=== PATIENT | female | born 1960 | race African-American/Black ===

== ENCOUNTER 2016-09-24 22:05 | Emergency (ER) | payer OTHER ==
[~2016-09-24] VITALS: Ht 170.2 cm; Wt 81.6 kg
[~2016-09-24 22:05] MED LIST: ALBUTEROL SULF8.5 GM INH; AMLODIPINE BESY10 MG; ASPIRIN81 M3; ATARAX25 MG ORAL; ATENOLOL50 MG; ATORVASTATIN CA20 MG; ATRIPLA TABLET1 EAC1; AZITHROMYCIN250 MG ORAL; BENADRYL ALLERG25 M1 PO; BISACODYL5 MG ORAL; COLACE100 MG ORAL; HYDROCHLOROTHIA25 MG; IBUPROFEN600 MG ORAL; IBUPROFEN800 MG ORAL; KENALOG 0.1% CR15 GM APPLIC; NAPROXEN375 MG; NORCO 5-325 TA1 EACH ORAL; PREDNISONE20 MG ORAL; PROAIR HFA8.5 GM; PROAIR HFA8.5 GM INH; QUETIAPINE FUM100 MG; RANITIDINE HCL150 M2; SPIRIVA18 MCG INH; VENLAFAXINE H37.5 M2; VICODIN 5-3001 EACH ORAL; ZITHROMAX250 MG ORAL; ZOLPIDEM TARTRA10 MG
[2016-09-24] MEDS ORDERED: VALACYCLOVIR500 MG ORAL (22:45)
[2016-09-24] MEDS ORDERED: BENADRYL25 MG ORAL (22:45)
--- NOTE | 2016-09-24 22:45 | Emergency Room Report ---
History of Present Illness General Chief Complaint: Skin Rash/Abscess Source: Patient Present Illness HPI Is a 55-year-old female with history of HIV. She presents with a rash to the right forehead. Onset for 3 days. Prior to that she felt burning and tingling sensation. Rash showed up the next day. Very itchy. No other injury. No blurry vision. Allergies: Coded Allergies: No Known Allergies (Unverified , 07/23/13) Patient History Past Medical History: see triage record, old chart reviewed, HIV Past Surgical History: other Pertinent Family History: none Social History: Denies: drug use Last Menstrual Period: 1995 Now: No Immunizations: other Reviewed Nursing Documentation: PMH: Agreed, PSxH: Agreed Nursing Documentation-PMH Past Medical History: No History, Except For Hx Hypertension: Yes Hx Pacemaker: No Hx Asthma: No Hx COPD: Yes Hx Diabetes: No Hx Cancer: No Hx Gastrointestinal Problems: No - Total hysterectomy in 1995 Hx Dialysis: No Hx Cerebrovascular Accident: No Hx Seizures: No Review of Systems Eye: Denies: blurred vision, eye pain ENT: Denies: ear pain, nose congestion, throat swelling Respiratory: Denies: cough, shortness of breath Cardiovascular: Denies: chest pain, palpitations Gastrointestinal: Denies: abdominal pain, diarrhea, nausea, vomiting Musculoskeletal: Denies: back pain, joint pain Skin: Reports: rash Neurological: Denies: headache, numbness Endocrine: Denies: increased thirst, increased urine Hematologic/Lymphatic: Denies: easy bruising All Other Systems: negative except mentioned in HPI Physical Exam Vital Signs Date Time Temp Pulse Resp B/P Pulse Ox O2 Delivery O2 Flow Rate FiO2 09/24/16 22:19 97.5 100 16 134/86 100 Room Air vitals normal. Sp02 EP Interpretation: reviewed, normal General Appearance: well appearing, no apparent distress, alert Head: normocephalic, atraumatic Eyes: bilateral eye EOMI, bilateral eye PERRL ENT: hearing grossly normal, normal pharynx Neck: full range of motion, supple, no meningismus Respiratory: chest non-tender, lungs clear, normal breath sounds Cardiovascular #1: regular rate, rhythm, no murmur Gastrointestinal: normal bowel sounds, non tender, no mass, no organomegaly, no bruit, non-distended Musculoskeletal: back normal, gait/station normal, normal range of motion Psychiatric: mood/affect normal Skin: warm/dry, rash - vesicular rash over right forehead. Medical Decision Making Diagnostic Impression: Primary Impression: Shingles Qualified Codes: B02.8 - Zoster with other complications ER Course Patient presents with a shingle outbreak to the right forehead. No rash to the tip of the nose or visual complaints. Funduscopic exam unremarkable. We'll discharge home with reassurance. Last Vital Signs Date Time Temp Pulse Resp B/P Pulse Ox O2 Delivery O2 Flow Rate FiO2 09/24/16 22:19 97.5 100 16 134/86 100 Room Air Status: unchanged Disposition: HOME, SELF-CARE Condition: Stable Scripts Valacyclovir Hcl* (VALTREX*) 500 Mg Tablet 500 MG ORAL TWICE A DAY, #14 TAB Prov: SHANIQUE DEVLIN M.D. 09/24/16 Diphenhydramine Hcl* (BENADRYL*) 25 Mg Capsule 50 MG ORAL Q6H Y for Itching, #30 CAP Prov: SHANIQUE DEVLIN M.D. 09/24/16 Additional Instructions: Follow up with your doctor in 7 days. Return if worse. SHANIQUE DEVLIN M.D. Sep 24, 2016 22:45
[2016-09-24 22:58] VITALS: BP 138/89
[2016-09-24 22:59] VITALS: BP 138/89
== END 2016-09-24 23:10 | disposition home or self-care (01) ==
LOC: EMR 23:06
DX: B02.9 Zoster without complications (principal); I10 Essential (primary) hypertension; J44.9 Chronic obstructive pulmonary disease, unspecified; Z90.710 Acquired absence of both cervix and uterus
CPT/HCPCS: 99284

== ENCOUNTER 2016-09-28 09:05 | Emergency (ER) | payer OTHER ==
[~2016-09-28] VITALS: Ht 170.2 cm; Wt 81.6 kg
[~2016-09-28 09:05] MED LIST changes: +BENADRYL25 MG ORAL; +VALACYCLOVIR500 MG ORAL
[2016-09-28] MEDS ORDERED: LORATADINE10 M1 PO (09:15)
[2016-09-28 09:35] VITALS: BP 120/75
--- NOTE | 2016-09-28 09:39 | Emergency Room Report ---
History of Present Illness General Chief Complaint: Vaginal Source: Patient Present Illness HPI Patient present with complaints of vaginal irritation She feels that over the past 6 days and she's had increased itching sensation Denies any discharge denies any pain Denies any vomiting or diarrhea Denies any vaginal bleeding or spotting she has also noticed some white flakes on her underwear Denies any other rash denies any dysuria frequency Allergies: Coded Allergies: No Known Allergies (Unverified , 07/23/13) Patient History Past Medical History: see triage record Pertinent Family History: none Reviewed Nursing Documentation: PMH: Agreed, PSxH: Agreed Nursing Documentation-PMH Past Medical History: No History, Except For Hx Hypertension: Yes Hx Pacemaker: No Hx Asthma: No Hx COPD: Yes Hx Diabetes: No Hx Cancer: No Hx Gastrointestinal Problems: No - Total hysterectomy in 1995 Hx Dialysis: No History Of Psychiatric Problem: Yes - Anxiety, depression Hx Neurological Problems: No Hx Cerebrovascular Accident: No Hx Seizures: No Review of Systems All Other Systems: negative except mentioned in HPI Physical Exam Vital Signs Date Time Temp Pulse Resp B/P Pulse Ox O2 Delivery O2 Flow Rate FiO2 09/28/16 09:08 98.2 84 16 120/75 98 Room Air Sp02 EP Interpretation: reviewed, normal General Appearance: well appearing, no apparent distress Head: normocephalic, atraumatic Eyes: bilateral eye EOMI, bilateral eye PERRL ENT: normal pharynx Neck: supple Respiratory: lungs clear Genitourinary: other - External pelvic exam was performed, no obvious erythema no fluctuance, no obvious discharge Musculoskeletal: normal inspection Neurologic: alert, oriented x3, responsive Skin: other - As above, patient has forehead covered, reports shingles Medical Decision Making Diagnostic Impression: Primary Impression: Vaginosis ER Course Given the clinical complaints patient is provided with ointment Requires close outpatient INSULATION MANAGER followup And return with any worsening symptoms Last Vital Signs Date Time Temp Pulse Resp B/P Pulse Ox O2 Delivery O2 Flow Rate FiO2 09/28/16 09:08 98.2 84 16 120/75 98 Room Air Status: unchanged Disposition: HOME, SELF-CARE Condition: Stable Additional Instructions: Patient is provided with the discharge instructions notified to follow up with primary doctor in the next 2-3 days otherwise return to the er with any worsening symptoms. Please note that this report is being documented using [employer] technology. This can lead to erroneous entry secondary to incorrect interpretation by the dictating instrument. JORJE EDMONDSON D.O. Sep 28, 2016 09:38
[2016-09-28] MEDS ORDERED: METROGEL-VAGINA70 G1 VAGIN (09:40)
[2016-09-28 09:52] VITALS: BP 120/75
== END 2016-09-28 09:55 | disposition home or self-care (01) ==
LOC: EMR 09:48
DX: N76.0 Acute vaginitis (principal); I10 Essential (primary) hypertension; J44.9 Chronic obstructive pulmonary disease, unspecified
CPT/HCPCS: 99282

== ENCOUNTER 2016-10-25 14:26 | Emergency (ER) | payer OTHER ==
[~2016-10-25] VITALS: Ht 170.2 cm; Wt 81.6 kg
[~2016-10-25 14:26] MED LIST changes: +LORATADINE10 M1 PO; +METROGEL-VAGINA70 G1 VAGIN
[2016-10-25 15:15] VITALS: BP 148/106
[2016-10-25 15:30] VITALS: BP 148/106
[2016-10-25] MEDS ORDERED: Morphine Sulfate 4mg/ml Inj IM ONE (15:30)
--- NOTE | 2016-10-25 20:57 | Emergency Room Report ---
History of Present Illness General Chief Complaint: General Complaint Present Illness HPI The patient is a 55-year-old female presenting for neck pain, shortness of breath, lower abdominal pain which all began this morning. The patient is described as a 10 out of 10 dull ache with unknown provoking relieving factors. The patient denies any other symptoms including nausea, vomiting, fever, chills, chest, shortness of breath. Allergies: Coded Allergies: No Known Allergies (Unverified , 07/23/13) Patient History Past Medical History: see triage record Pertinent Family History: none Reviewed Nursing Documentation: PMH: Agreed, PSxH: Agreed Nursing Documentation-PMH Hx Hypertension: Yes Hx Pacemaker: No Hx Asthma: No Hx COPD: Yes Hx Diabetes: No Hx Cancer: No Hx Gastrointestinal Problems: No - Total hysterectomy in 1995 Hx Dialysis: No Hx Neurological Problems: No Hx Cerebrovascular Accident: No Hx Seizures: No Review of Systems All Other Systems: negative except mentioned in HPI Physical Exam Vital Signs Date Time Temp Pulse Resp B/P Pulse Ox O2 Delivery O2 Flow Rate FiO2 10/25/16 14:54 98.1 50 16 148/106 100 Room Air Sp02 EP Interpretation: reviewed, normal General Appearance: no apparent distress, alert, GCS 15, non-toxic Head: normocephalic, atraumatic Eyes: bilateral eye PERRL, bilateral eye normal inspection Musculoskeletal: gait/station normal, normal range of motion Neurologic: alert, oriented x3, responsive, motor strength/tone normal, sensory intact, normal gait, speech normal Psychiatric: judgement/insight normal, memory normal, mood/affect normal, no suicidal/homicidal ideation Skin: normal color, no rash, warm/dry, well hydrated Lymphatic: no adenopathy Medical Decision Making PA Attestation Dr. Gutierrez is my supervising physician. Patient management was discussed with my supervising physician ER Course The patient is a 55-year-old female presenting for neck pain, shortness of breath, lower abdominal pain The patient has eloped shortly after being placed in a chair. The patient states that "I don't have time for this". Last Vital Signs Date Time Temp Pulse Resp B/P Pulse Ox O2 Delivery O2 Flow Rate FiO2 10/25/16 15:30 98.1 50 16 148/106 100 Room Air Status: improved Disposition: ELOPED Condition: Unknown Referrals: [facility] (PCP) EVELINA ESTEVES Oct 25, 2016 20:57
[2016-10-26] MEDS ORDERED: VIBRAMYCIN100 MG ORAL (10:07)
[2016-10-26] MEDS ORDERED: TRAMADOL HCL50 MG ORAL (10:07)
== END 2016-10-25 15:30 | disposition left against medical advice (07) ==
LOC: EMR 15:30
DX: M54.2 Cervicalgia (principal); R06.02 Shortness of breath; R10.30 Lower abdominal pain, unspecified; I10 Essential (primary) hypertension; J44.9 Chronic obstructive pulmonary disease, unspecified; Z90.710 Acquired absence of both cervix and uterus
CPT/HCPCS: 99281

== ENCOUNTER 2016-10-26 09:26 | Emergency (ER) | payer OTHER ==
[~2016-10-26] VITALS: Ht 170.2 cm; Wt 81.6 kg
[2016-10-26 10:00] VITALS: BP 116/76
[2016-10-26] MEDS ORDERED: TRAMADOL HCL50 MG ORAL (10:07)
[2016-10-26] MEDS ORDERED: VIBRAMYCIN100 MG ORAL (10:07)
--- NOTE | 2016-10-26 10:18 | Emergency Room Report ---
History of Present Illness General Chief Complaint: General Complaint Source: Patient Present Illness HPI Patient presents with sore throat and lymph node swelling both in her neck and also in her groin area. She also has edema in both of her ankles. This been on for several months but worse for 2-3 days. She states she's had fevers. She denies any trouble swallowing from discomfort. She has no shortness of breath. No cough, chest pain, abdominal pain, dysuria. She denies vaginal d/c. No NVD. She states her doctors believe the edema is related to HIV meds. The patient is HIV for some years and is being followed. She states her viral load and C4 counts are good. Allergies: Coded Allergies: No Known Allergies (Unverified , 07/23/13) Patient History Past Medical History: see triage record Social History: Reports: smoking Social History Narrative disabled Last Menstrual Period: na Now: No Reviewed Nursing Documentation: PMH: Agreed, PSxH: Agreed Nursing Documentation-PMH Past Medical History: No History, Except For Hx Hypertension: Yes Hx Pacemaker: No Hx Asthma: No Hx COPD: Yes Hx Diabetes: No Hx Cancer: No Hx Gastrointestinal Problems: No - Total hysterectomy in 1995 Hx Dialysis: No Hx Neurological Problems: No Hx Cerebrovascular Accident: No Hx Seizures: No Review of Systems All Other Systems: negative except mentioned in HPI Physical Exam Vital Signs Date Time Temp Pulse Resp B/P Pulse Ox O2 Delivery O2 Flow Rate FiO2 10/26/16 09:40 98.1 78 18 116/76 96 Room Air Sp02 EP Interpretation: reviewed, normal General Appearance: well appearing, no apparent distress, GCS 15 Head: normocephalic Eyes: bilateral eye normal inspection ENT: moist mucus membranes, pharyngeal erythema Neck: supple, no meningismus Respiratory: chest non-tender, lungs clear, normal breath sounds Cardiovascular #1: regular rate, rhythm, edema - + bilaterally Cardiovascular #2: 2+ radial (R) Gastrointestinal: normal inspection, normal bowel sounds, non tender, no mass, non-distended Musculoskeletal: back normal, gait/station normal, normal range of motion Neurologic: alert, oriented x3, grossly normal Psychiatric: mood/affect normal Skin: normal inspection, warm/dry Lymphatic: adenopathy - minimal groin nodes Medical Decision Making Diagnostic Impression: Primary Impression: Pharyngitis Qualified Codes: J02.9 - Acute pharyngitis, unspecified Additional Impressions: Lymphadenitis Edema ER Course Patient with HIV and sore throat, lymphadenopathy and edema. DDx: viral, strep , candidal. Edema seems long standing. She alleges taking her HIV meds and having close follow up. Etiologies of edema and lymph node enlargement probably not related to the chief complaint. Diagnosis is clinical for pharyngitis. Doxy chosen to cover possible lymph node infection. Suggested to patient to follow up with her PMD for other problems and also for repeat evaluation of sore throat treatment. Patient stable for outpatient observation and treatment. Last Vital Signs Date Time Temp Pulse Resp B/P Pulse Ox O2 Delivery O2 Flow Rate FiO2 10/26/16 10:35 98.1 78 18 116/76 96 Room Air Status: improved Disposition: HOME, SELF-CARE Condition: Stable Scripts Tramadol Hcl* (ULTRAM*) 50 Mg Tablet 50 MG ORAL Q6H Y for For Pain, #10 TAB 0 Refills Prov: Collin Perkins M.D. 10/26/16 Doxycycline Hyclate* (VIBRAMYCIN*) 100 Mg Capsule 100 MG ORAL EVERY 12 HOURS, #14 CAP 0 Refills Prov: Collin Perkins M.D. 10/26/16 Referrals: [facility] (PCP) Patient Instructions: Edema, Pharyngitis, Lymphadenopathy Additional Instructions: Follow up with your MD. Continue your medicines. Decrease the salt in your diet. Return if you are not doing well. Collin Perkins M.D. Oct 26, 2016 10:18
[2016-10-26 10:35] VITALS: BP 116/76
== END 2016-10-26 10:35 | disposition home or self-care (01) ==
LOC: EMR 10:06
DX: J02.9 Acute pharyngitis, unspecified (principal); I88.9 Nonspecific lymphadenitis, unspecified; R60.0 Localized edema; I10 Essential (primary) hypertension; J44.9 Chronic obstructive pulmonary disease, unspecified; Z90.710 Acquired absence of both cervix and uterus; F17.200 Nicotine dependence, unspecified, uncomplicated
CPT/HCPCS: 99284

== ENCOUNTER 2016-11-17 09:39 | Emergency (ER) | payer OTHER ==
[~2016-11-17] VITALS: Ht 170.2 cm; Wt 81.6 kg
[~2016-11-17 09:39] MED LIST changes: +TRAMADOL HCL50 MG ORAL; +VIBRAMYCIN100 MG ORAL
[2016-11-17] MEDS ORDERED: Lidocaine 2% Visc 15ml soln ORAL ONE (11:30)
[2016-11-17 11:39] VITALS: BP 127/76
[2016-11-17 11:40] VITALS: BP 127/76
--- NOTE | 2016-11-19 14:48 | Emergency Room Report ---
History of Present Illness General Chief Complaint: Flu Like Symptoms Source: Patient Present Illness HPI 55YOF with "sore" to right back of tongue for 2 days. Denies fever/chills, difficulty/painful swallowing, SOB, chest pain, headache, neck pain. Feels well otherwise. Allergies: Coded Allergies: No Known Allergies (Unverified , 07/23/13) Patient History Past Medical History: HIV Past Surgical History: none Pertinent Family History: none Social History: Denies: alcohol use, drug use, smoking Now: No Immunizations: UTD Reviewed Nursing Documentation: PMH: Agreed, PSxH: Agreed Nursing Documentation-PMH Hx Cardiac Problems: No Hx Hypertension: Yes Hx Pacemaker: No Hx Asthma: No Hx COPD: No Hx Diabetes: No Hx Cancer: No Hx Dialysis: No Hx Neurological Problems: No Hx Cerebrovascular Accident: No Hx Seizures: No Review of Systems All Other Systems: negative except mentioned in HPI Physical Exam Vital Signs Date Time Temp Pulse Resp B/P Pulse Ox O2 Delivery O2 Flow Rate FiO2 11/17/16 10:17 98.1 78 18 120/80 98 Room Air Sp02 EP Interpretation: reviewed, normal General Appearance: normal inspection, well appearing, no apparent distress, alert, GCS 15, non-toxic Head: normocephalic, atraumatic Eyes: bilateral eye EOMI, bilateral eye PERRL ENT: normal ENT inspection, hearing grossly normal, normal voice, moist mucus membranes, other - Small cold/canker sore to posterior aspect of right tongue Neck: normal inspection, full range of motion, supple, no bony tend Respiratory: normal inspection, lungs clear, normal breath sounds, no respiratory distress, no retraction, no wheezing Cardiovascular #1: regular rate, rhythm, no edema Gastrointestinal: normal inspection, normal bowel sounds, non tender, soft, no guarding, no hernia Genitourinary: no CVA tenderness Musculoskeletal: normal inspection, back normal, normal range of motion, Herminio' s Sign negative Neurologic: normal inspection, alert, oriented x3, responsive, steel wheel engraver III-XII nml as tested, motor strength/tone normal, speech normal Psychiatric: normal inspection, judgement/insight normal, mood/affect normal Skin: normal inspection, normal color, no rash Lymphatic: normal inspection Medical Decision Making Diagnostic Impression: Primary Impression: Canker sore ER Course Gave viscous lidocaine in ED with improvement Has dentist appointment in the next week Advised OTC listerine rinse as needed Advised supportive treatment Reassured patient will self-resolve Last Vital Signs Date Time Temp Pulse Resp B/P Pulse Ox O2 Delivery O2 Flow Rate FiO2 11/17/16 11:40 98.1 71 18 127/76 98 Room Air Status: improved Disposition: HOME, SELF-CARE Condition: Improved Patient Instructions: Oral Ulcers Additional Instructions: - Rinse with listerine 2-3x a day as needed - Follow up with dentist at next appointment RACHNA RAPHAEL M.D. Nov 19, 2016 14:48
== END 2016-11-17 11:46 | disposition home or self-care (01) ==
LOC: EMR 10:55
DX: K12.0 Recurrent oral aphthae (principal); I10 Essential (primary) hypertension
CPT/HCPCS: 99282

== ENCOUNTER 2017-04-05 08:26 | Emergency (ER) | payer OTHER ==
[~2017-04-05] VITALS: Ht 170.2 cm; Wt 81.6 kg
[2017-04-05 08:52] VITALS: BP 149/87
[2017-04-05] MEDS ORDERED: PredniSONE 20mg tab ORAL ONE (09:00)
[2017-04-05] MEDS: DuoNeb 0.5-3(2.5)mg/3ml neb HHN SCH ×3 (09:22→10:47)
--- NOTE | 2017-04-05 09:56 | Emergency Room Report ---
History of Present Illness General Chief Complaint: Dyspnea/Respdistress Source: Patient Present Illness HPI 56 yo F w copd p/w sob/wheezing x 2 days. states she has been using inhaler x 4 hours with miniml relief. +slight cough nonproductive. denies fever chills chest pain nv. denies hx of hospitalizations for copd in the past. no use of bipap. no recent steroid use. . Allergies: Coded Allergies: No Known Allergies (Unverified , 07/23/13) Patient History Past Medical History: COPD Past Surgical History: none Pertinent Family History: none Now: No Nursing Documentation-PMH Hx Cardiac Problems: No Hx Hypertension: Yes Hx Pacemaker: No Hx Asthma: No Hx COPD: Yes Hx Diabetes: No Hx Cancer: No Hx Gastrointestinal Problems: Yes - hiv, hx ulcer Hx Dialysis: No Hx Neurological Problems: No Hx Cerebrovascular Accident: No Hx Seizures: No Review of Systems Respiratory: Reports: cough, shortness of breath, wheezing All Other Systems: negative except mentioned in HPI Physical Exam Vital Signs Date Time Temp Pulse Resp B/P Pulse Ox O2 Delivery O2 Flow Rate FiO2 04/05/17 08:31 98.1 83 15 149/87 100 Room Air Sp02 EP Interpretation: reviewed, normal General Appearance: normal inspection, well appearing, no apparent distress, alert, GCS 15, non-toxic, other - well appearing female speaking in complete sentences without difficulty Head: normocephalic, atraumatic Eyes: bilateral eye EOMI, bilateral eye PERRL, bilateral eye normal inspection ENT: normal ENT inspection, normal pharynx, normal voice, moist mucus membranes Neck: normal inspection, full range of motion, supple, no bony tend Respiratory: normal inspection, lungs clear, normal breath sounds, no respiratory distress, no retraction, no wheezing, speaking full sentences, chest symmetrical Cardiovascular #1: normal inspection, regular rate, rhythm, no edema, normal capillary refill Gastrointestinal: normal inspection, non tender, soft, non-distended, no guarding Musculoskeletal: normal inspection, back normal, normal range of motion, non- tender Neurologic: normal inspection, alert, oriented x3, responsive, benefits processor III-XII nml as tested, motor strength/tone normal, sensory intact, normal gait, speech normal Psychiatric: normal inspection, judgement/insight normal, memory normal Skin: normal inspection, normal color, no rash, warm/dry, well hydrated, normal turgor Medical Decision Making Diagnostic Impression: Primary Impression: COPD exacerbation Additional Impression: Pneumonia ER Course 56 yo F with pmhx of COPD p/w SOB for 2-3 days. DDX: COPD exacerbation, pneumonia, viral syndrome patient only in mild resp distress Plan: Duonebs, steroids, cxr Will consider BIPAP for persistent or worsening respiratory status ER Course: Patient has been treated with combivent x 3, steroids CXR- possible R sided infiltrate Patients overall respiratory status has improved in ED. Patient states improvement of symptoms. Patient continues to speak in complete sentences and is not in respiratory distress. Repeat lung auscultation: good air entry with minimal/no wheezing. Repeat VS reveals normal RR and SpO2. Disposition: Patient will be discharged to home with course of steroids and antibiotics. Patient is instructed to use albuterol inhaler as needed. Strict precautions are discussed with patient on when to emergently return to the ED including: persistent or worsening SOB, chest pain, fever, chills, which could indicate severe illness. Patient verbalized understanding. Patient is to follow up with her/his PMD within 5 days. Patient agrees with plan. EKG Diagnostic Results Rate: normal Rhythm: NSR ST Segments: other - t wave inversion V2V3 aVL, t wave flattening V4-V6 Rhythm Strip Diag. Results EP Interpretation: yes Rhythm: NSR, no PVC's Chest X-Ray Diagnostic Results Chest X-Ray Diagnostic Results : # of Views/Limited/Complete: 1 View Indication: Shortness of Breath EP Interpretation: Yes Interpretation: no effusion, other - possible R sided infiltrate Impression: Other - possible R sided infiltrate suspicion for pneumonia Interpreting ER Provider: Electronically signed by Sylvester Coughlin M.D. Last Vital Signs Date Time Temp Pulse Resp B/P Pulse Ox O2 Delivery O2 Flow Rate FiO2 04/05/17 09:33 85 18 100 Room Air 04/05/17 08:52 98.1 149/87 Disposition: HOME, SELF-CARE Condition: Improved Scripts Levofloxacin* (LEVAQUIN*) 500 Mg Tablet 500 MG ORAL DAILY, #10 TAB Prov: Sylvester Coughlin M.D. 04/05/17 Prednisone* (PREDNISONE*) 20 Mg Tablet 40 MG ORAL DAILY for 5 Days, #5 TAB Prov: Sylvester Coughlin M.D. 04/05/17 Referrals: [facility] (PCP) Patient Instructions: Chronic Obstructive Pulmonary Disease Exacerbation, Community-Acquired Pneumonia, Adult Additional Instructions: Please follow up with your primary care doctor within 3 days. Please return to the emergency room immediately if you are experiencing severe or worsening pain, high fevers or chills, chest pain, shortness of breath, severe abdominal pain, nausea or vomiting. Sylvester Coughlin M.D. Apr 05, 2017 09:56
--- NOTE | 2017-04-05 10:05 | Diagnostic Imaging Report ---
Indication: Shortness of breath Technique: XRAY CHEST 1 V Comparison: 01/18/16 Findings: Cardiomediastinal silhouette is stable. There is no consolidation or pleural effusion. There is pulmonary hyperinflation and linear scarring in the bilateral upper lobes may suggest underlying chronic obstructive pulmonary disease. Osseous structures are stable. Impression: No acute cardiopulmonary disease.
[2017-04-05] MEDS ORDERED: DuoNeb 0.5-3(2.5)mg/3ml neb HHN SCH (10:30)
[2017-04-05 10:33] VITALS: BP 146/86
[2017-04-05] MEDS ORDERED: PREDNISONE20 MG ORAL (10:33)
[2017-04-05] MEDS ORDERED: LEVAQUIN500 MG ORAL (10:33)
[2017-04-05 11:00] VITALS: BP 141/82
--- NOTE | 2017-04-09 21:24 | Cardiology Report ---
APPROVED REPORT EKG Measurement Heart [id number] Normal sinus rhythm Nonspecific T wave abnormality Abnormal ECG
== END 2017-04-05 11:02 | disposition home or self-care (01) ==
LOC: EMR 08:48
DX: J44.1 Chronic obstructive pulmonary disease with (acute) exacerbation (principal); J18.9 Pneumonia, unspecified organism; I10 Essential (primary) hypertension
CPT/HCPCS: 71010; 93005; 94640; 94664; 99284; J7620

== ENCOUNTER 2017-06-05 06:12 | Emergency (ER) | payer OTHER ==
[~2017-06-05] VITALS: Ht 170.2 cm; Wt 81.6 kg
[~2017-06-05 06:12] MED LIST changes: +LEVAQUIN500 MG ORAL
--- NOTE | 2017-06-05 06:40 | Emergency Room Report ---
History of Present Illness General Chief Complaint: Dyspnea/Respdistress Source: Patient Present Illness HPI 56-year-old female with history of COPD, hypertension, HIV positive, on treatment however does not know CD4 count, former smoker, p/w SOB and chest tightness for 4 days. Patient states SOB began gradually. SOB occurs both at rest and on exertion. Reports productive cough with yellow or green sputum, also associated with bilateral chest tightness worse with breathing. Patient has been using albuterol inhaler 3 times a day Patient does not have nebulizer at home. No recent steroid use. Pt states that this episode is similar to other episodes of COPD exacerbation. Denies fever, chills. Denies sick contacts or recent travel. Patient denies history of ICU admissions, intubations, or usage of BIPAP for COPD. Denies history of PE/DVT, no recent surgeries, prolonged immobilization, use of OCPs/HRT. Allergies: Coded Allergies: No Known Allergies (Unverified , 07/23/13) Patient History Past Medical History: see triage record Past Surgical History: none Pertinent Family History: none Last Menstrual Period: None Reviewed Nursing Documentation: PMH: Agreed, PSxH: Agreed Nursing Documentation-PMH Hx Cardiac Problems: No Hx Hypertension: Yes Hx Pacemaker: No Hx Asthma: No Hx COPD: Yes Hx Diabetes: No Hx Cancer: No Hx Gastrointestinal Problems: Yes - hiv, hx ulcer Hx Dialysis: No Hx Neurological Problems: No Hx Cerebrovascular Accident: No Hx Seizures: No Review of Systems All Other Systems: negative except mentioned in HPI Physical Exam Vital Signs Date Time Temp Pulse Resp B/P (MAP) Pulse Ox O2 Delivery O2 Flow Rate FiO2 06/05/17 06:15 98.1 86 18 122/78 99 Room Air Sp02 EP Interpretation: reviewed, normal General Appearance: normal inspection, well appearing, no apparent distress, alert, GCS 15, non-toxic, other - Not in respiratory distress, speaking complete sentences, calm and cooperative Head: normocephalic, atraumatic Eyes: bilateral eye normal inspection, bilateral eye PERRL, bilateral eye EOMI ENT: normal ENT inspection, normal pharynx, normal voice, moist mucus membranes Neck: normal inspection, full range of motion, supple Respiratory: normal inspection, lungs clear, normal breath sounds, no respiratory distress, no retraction, no wheezing, speaking full sentences, chest symmetrical Cardiovascular #1: normal inspection, regular rate, rhythm, no edema, normal capillary refill Cardiovascular #2: 2+ radial (R), 2+ radial (L) Gastrointestinal: normal inspection, non tender, soft, non-distended, no guarding Musculoskeletal: normal inspection, back normal, normal range of motion, non- tender Neurologic: normal inspection, alert, oriented x3, responsive, motor strength/ tone normal, sensory intact, normal gait, speech normal Psychiatric: normal inspection, judgement/insight normal, memory normal Skin: normal inspection, normal color, no rash, warm/dry, well hydrated, normal turgor Medical Decision Making Diagnostic Impression: Primary Impression: chest pain ER Course 56 with pmhx of COPD p/w SOB for 4 days DDX: COPD exacerbation, ACS, pneumonia, viral URI Plan: IV access, traffic worker, O2 nasal cannula, EKG, CXR obtain basic labs including blood gas, troponin, Duonebs held at this time pt not wheezing ER Course: CXR reveals no acute infiltrate Patient continues to speak in complete sentences and is not in respiratory distress. Repeat lung auscultation: good air entry with minimal/no wheezing. Repeat VS reveals normal RR and SpO2 Given ASA Patient yelling/cursing at nursing staff, yelling for pain medication, was very hostile towards me that no one is attending to her. Patient not in resp distress, was ambulatory in the ED without difficulty. labs unremarkable Disposition: Patient eloped from ED witnessed by staff. Please note that this Emergency Department Report was dictated using [email or web address] chemist technology software, occasionally this can lead to erroneous entry secondary to interpretation by the dictation equipment. EKG Diagnostic Results EP Interpretation: Yes Rate: normal Rhythm: NSR ST Segments: Diffuse T-wave flattening more pronounced in lateral leads ASA given to patient: Yes Rhythm Strip EP Interpretation: Yes Rate: 70 Rhythm: NSR, no PVCs, no ectopy Chest X-ray CXR: Ordered: Yes 1 view Indication: SOB EP interpretation: Yes Interpretation: Possible L sided infiltrate/effusion Impression: possible L sided infiltrate / effusion Electronically signed by Sylvester Coughlin MD Laboratory Tests Test 06/05/17 06:36 White Blood Count 12.0 K/UL (4.8-10.8) H Red Blood Count 4.48 M/UL (4.20-5.40) Hemoglobin 15.3 G/DL (12.0-16.0) Hematocrit 45.3 % (37.0-47.0) Mean Corpuscular Volume 101 FL (80-99) H Mean Corpuscular Hemoglobin 34.1 PG (27.0-31.0) H Mean Corpuscular Hemoglobin Concent 33.7 G/DL (32.0-36.0) Red Cell Distribution Width 12.7 % (11.6-14.8) Platelet Count 271 K/UL (150-450) Mean Platelet Volume 7.8 FL (6.5-10.1) Neutrophils (%) (Auto) 59.7 % (45.0-75.0) Lymphocytes (%) (Auto) 32.8 % (20.0-45.0) Monocytes (%) (Auto) 3.7 % (1.0-10.0) Eosinophils (%) (Auto) 3.2 % (0.0-3.0) H Basophils (%) (Auto) 0.7 % (0.0-2.0) Sodium Level 143 MMOL/L (136-145) Potassium Level 3.8 MMOL/L (3.5-5.1) Chloride Level 107 MMOL/L (98-107) Carbon Dioxide Level 27 MMOL/L (21-32) Anion Gap 9 mmol/L (5-15) Blood Urea Nitrogen 18 mg/dL (7-18) Creatinine 1.0 MG/DL (0.55-1.30) Estimate Glomerular Filtration Rate > 60 mL/min (>60) Glucose Level 118 MG/DL (74-106) H Calcium Level 9.0 MG/DL (8.5-10.1) Total Bilirubin 0.1 MG/DL (0.2-1.0) L Aspartate Amino Transferase (AST) 13 U/L (15-37) L Alanine Aminotransferase (ALT) 21 U/L (12-78) Alkaline Phosphatase 75 U/L (46-116) Total Creatine Kinase 73 U/L (26-308) Creatine Kinase MB 1.1 NG/ML (0.0-3.6) Creatine Kinase MB Relative Index 1.5 Troponin I 0.042 ng/mL (0.000-0.056) Pro-B-Type Natriuretic Peptide 23 pg/mL (0-125) Total Protein 7.3 G/DL (6.4-8.2) Albumin 3.9 G/DL (3.4-5.0) Globulin 3.4 g/dL Albumin/Globulin Ratio 1.1 (1.0-2.7) Last Vital Signs Date Time Temp Pulse Resp B/P (MAP) Pulse Ox O2 Delivery O2 Flow Rate FiO2 06/05/17 06:22 86 18 Room Air 06/05/17 06:15 98.1 122/78 99 Disposition: ELOPED Condition: Stable Referrals: [facility],REFERRING (PCP) Sylvester Coughlin M.D. Jun 05, 2017 06:39
[2017-06-05 06:56] LABS: BASOPHILS % (AUTO) 0.7 % (0.0-2.0); EOSINOPHILS % (AUTO) 3.2 % (0.0-3.0); LYMPHOCYTES % (AUTO) 32.8 % (20.0-45.0); MEAN CORPUSCULAR HEMOGLOBIN 34.1 PG (27.0-31.0); MEAN CORPUSCULAR HGB CONC 33.7 G/DL (32.0-36.0); MEAN CORPUSCULAR VOLUME 101 FL (80-99); MEAN PLATELET VOLUME 7.8 FL (6.5-10.1); MONOCYTES % (AUTO) 3.7 % (1.0-10.0); NEUTROPHILS % (AUTO) 59.7 % (45.0-75.0); PLATELET COUNT 271 K/UL (150-450); RED BLOOD COUNT 4.48 M/UL (4.20-5.40); RED CELL DISTRIBUTION WIDTH 12.7 % (11.6-14.8)
[2017-06-05 07:12] VITALS: BP 125/78
[2017-06-05 07:19] LABS: ALANINE AMINOTRANSFERASE 21 U/L (12-78); ALBUMIN/GLOBULIN RATIO 1.1 (1.0-2.7); ANION GAP 9 mmol/L (5-15); ASPARTATE AMINO TRANSFERASE 13 U/L (15-37); CARBON DIOXIDE 27 MMOL/L (21-32); CHLORIDE 107 MMOL/L (98-107); CKMB 1.1 NG/ML (0.0-3.6); GLOMERULAR FILTRATION RATE > 60 mL/min (>60); POTASSIUM 3.8 MMOL/L (3.5-5.1); SODIUM 143 MMOL/L (136-145); TOTAL PROTEIN 7.3 G/DL (6.4-8.2)
[2017-06-05 07:59] VITALS: BP 124/73
--- NOTE | 2017-06-05 11:46 | Diagnostic Imaging Report ---
Indication: SOB Technique: One view of the chest Comparison: 04/05/2017 Findings: Bilateral upper lobe bullous changes are again demonstrated. The lungs and pleural spaces are clear. Heart size is normal. No significant interim change Impression: Bilateral upper lobe bullous changes consistent with bullous COPD No acute process
--- NOTE | 2017-06-05 15:00 | Cardiology Report ---
APPROVED REPORT EKG Measurement Heart [id number] Normal sinus rhythm Possible Left atrial enlargement Nonspecific ST and T wave abnormality Abnormal ECG
== END 2017-06-05 08:00 | disposition home or self-care (01) ==
LOC: EMR 06:26
DX: R07.9 Chest pain, unspecified (principal); Z53.21 Procedure and treatment not carried out due to patient leaving prior to being seen by health care provider; R06.00 Dyspnea, unspecified; J44.9 Chronic obstructive pulmonary disease, unspecified; I10 Essential (primary) hypertension; R06.02 Shortness of breath; R07.89 Other chest pain; Z87.898 Personal history of other specified conditions
CPT/HCPCS: 36415; 71010; 80053; 82550; 82553; 83880; 84484; 85025; 93005; 99283

== ENCOUNTER 2017-06-23 07:30 | Emergency (ER) | payer OTHER ==
[~2017-06-23] VITALS: Ht 170.2 cm; Wt 85.3 kg
[2017-06-23 07:43] VITALS: BP 134/85
[2017-06-23] MEDS ORDERED: Cyclobenzaprine 10mg Tab ORAL ONE (08:00)
[2017-06-23] MEDS ORDERED: Acetaminophen 500mg (ES) tab ORAL ONE (08:00)
[2017-06-23] MEDS ORDERED: Ketorolac 60mg Inj IM ONE (08:00)
--- NOTE | 2017-06-23 08:32 | Emergency Room Report ---
History of Present Illness General Chief Complaint: Lower Back Pain or Injury Source: Patient Present Illness HPI This patient states that a couple days ago she was helping move her aunt up in a hospital bed. She states that she felt a pull in her right buttock and back. She states that since that time she has had pain in her right buttock radiating down her right anterior thigh. She denies trauma. She denies fever or chills. She denies weakness. She denies dysuria or hematuria. She has no other complaints. Allergies: Coded Allergies: No Known Allergies (Unverified , 07/23/13) Patient History Past Medical History: see triage record, HTN, COPD Social History: Reports: smoking, Denies: alcohol use, drug use Last Menstrual Period: 1995 Hysterectomy Now: No Reviewed Nursing Documentation: PMH: Agreed, PSxH: Agreed Nursing Documentation-PMH Hx Hypertension: Yes Hx Pacemaker: No Hx Asthma: No Hx COPD: Yes Hx Diabetes: No Hx Cancer: No Hx Gastrointestinal Problems: Yes - HYSTERECTOMY IN 1995. Hx Dialysis: No Hx Neurological Problems: No Hx Cerebrovascular Accident: No Hx Seizures: No Review of Systems All Other Systems: negative except mentioned in HPI Physical Exam Vital Signs Date Time Temp Pulse Resp B/P (MAP) Pulse Ox O2 Delivery O2 Flow Rate FiO2 06/23/17 07:35 97.9 76 19 134/85 98 Room Air Sp02 EP Interpretation: reviewed, normal General Appearance: no apparent distress, alert, GCS 15, non-toxic Head: normocephalic, atraumatic Eyes: bilateral eye normal inspection, bilateral eye PERRL ENT: hearing grossly normal, normal pharynx, no angioedema, normal voice Neck: full range of motion, supple/symm/no masses Respiratory: no respiratory distress, no retraction, no accessory muscle use, speaking full sentences Cardiovascular #1: regular rate, rhythm, no edema Gastrointestinal: normal bowel sounds, non tender, soft, non-distended, no guarding, no rebound Rectal: deferred Musculoskeletal: normal range of motion, tender - TTP over the R. piriformis and glute. +antalgic gait. Neurologic: alert, oriented x3, responsive, motor strength/tone normal, sensory intact, speech normal Psychiatric: judgement/insight normal, memory normal, mood/affect normal, no suicidal/homicidal ideation Skin: normal color, no rash, warm/dry, well hydrated Medical Decision Making Diagnostic Impression: Primary Impression: Sciatica Additional Impressions: Lower back injury Muscle strain ER Course This patient has a clinical presentation consistent with muscle strain. There are no red flags on physical exam or history that would make me concerned for underlying fracture. Therefore, I do not feel that I need to obtain imaging studies. The patient has pain with range of motion and has tenderness to palpation along the muscle. There is no evidence of compartment syndrome. There is no neurologic deficit. The patient was instructed on supportive home measures. No emergency medical condition was identified. The patient was given return precautions and followup instructions. Last Vital Signs Date Time Temp Pulse Resp B/P (MAP) Pulse Ox O2 Delivery O2 Flow Rate FiO2 06/23/17 07:43 97.9 74 19 134/85 96 Room Air Status: improved Disposition: HOME, SELF-CARE Condition: Improved Referrals: NON PHYSICIAN (PCP) Patient Instructions: Low Back Sprain With Rehab-[facility], Lumbosacral Strain LUKE SCHAEFER D.O. Jun 23, 2017 08:32
[2017-06-23] MEDS ORDERED: IBUPROFEN600 MG ORAL (08:34)
[2017-06-23] MEDS ORDERED: CYCLOBENZAPRINE10 MG ORAL (08:34)
[2017-06-23] MEDS ORDERED: ACETAMINOPHEN-1 EAC1 ORAL (08:34)
[2017-06-23 08:50] VITALS: BP 134/85
== END 2017-06-23 09:24 | disposition home or self-care (01) ==
LOC: EMR 08:01
DX: S39.012A Strain of muscle, fascia and tendon of lower back, initial encounter (principal); M54.31 Sciatica, right side; I10 Essential (primary) hypertension; J44.9 Chronic obstructive pulmonary disease, unspecified; Z90.710 Acquired absence of both cervix and uterus; X50.9XXA Other and unspecified overexertion or strenuous movements or postures, initial encounter; Y92.239 Unspecified place in hospital as the place of occurrence of the external cause
CPT/HCPCS: 96372; 99284

== ENCOUNTER 2017-06-30 16:22 | Emergency (ER) | payer OTHER ==
[~2017-06-30] VITALS: Ht 170.2 cm; Wt 85.3 kg
[~2017-06-30 16:22] MED LIST changes: +ACETAMINOPHEN-1 EAC1 ORAL; +CYCLOBENZAPRINE10 MG ORAL
[2017-06-30 16:31] VITALS: BP 156/94
[2017-06-30] MEDS ORDERED: Ketorolac 60mg Inj IM ONE (17:00)
--- NOTE | 2017-06-30 17:05 | Emergency Room Report ---
History of Present Illness General Chief Complaint: Pain Present Illness HPI 56-year-old female presents to the emergency department complaining of 8/10 in severity right-sided low back pain that radiates down into the posterior right thigh x1 week. Patient states she has a history of sciatica and she recently had exacerbation after helping to move her mother. Patient states that she was evaluated and discharged with Flexeril which she reports has not relieved any of her symptoms. Patient denies fevers, chills, recent spinal procedure, history of cancer, trauma or fall. Denies frequency, hematuria, urgency or abdominal pain. Denies numbness tingling or loss of sensation or gross motor movements of the extremities, incontinence of bowel or bladder. Denies CP, Palpitations, LOC, AMS, dizziness, Changes in Vision, Sensation, paresthesias, or a sudden severe headache. Allergies: Coded Allergies: No Known Allergies (Unverified , 07/23/13) Patient History Past Medical History: see triage record Past Surgical History: none Pertinent Family History: none Now: No Reviewed Nursing Documentation: PMH: Agreed, PSxH: Agreed Nursing Documentation-PMH Hx Hypertension: Yes Hx Pacemaker: No Hx Asthma: No Hx COPD: Yes Hx Diabetes: No Hx Cancer: No Hx Gastrointestinal Problems: Yes - HYSTERECTOMY IN 1995. Hx Dialysis: No Hx Neurological Problems: No Hx Cerebrovascular Accident: No Hx Seizures: No Review of Systems All Other Systems: negative except mentioned in HPI Physical Exam Vital Signs Date Time Temp Pulse Resp B/P (MAP) Pulse Ox O2 Delivery O2 Flow Rate FiO2 06/30/17 16:26 97.5 92 20 156/94 99 Room Air Sp02 EP Interpretation: reviewed, normal General Appearance: no apparent distress, alert, GCS 15, non-toxic Head: normocephalic, atraumatic ENT: hearing grossly normal, normal voice Neck: full range of motion Respiratory: lungs clear, normal breath sounds, speaking full sentences Cardiovascular #1: regular rate, rhythm, normal capillary refill Gastrointestinal: non tender, soft Genitourinary: normal inspection, no CVA tenderness Musculoskeletal: back normal, gait/station normal, normal range of motion, tender - TTP to the right paraspinal musculature, the lateral upper gluteal region, no bony ttp, pain exacerbated with bending forward, ambulatory with a steady gait Neurologic: alert, oriented x3, responsive, motor strength/tone normal, sensory intact, normal gait, speech normal Skin: normal color, no rash, warm/dry, well hydrated Medical Decision Making PA Attestation Dr. Coughlin is my supervising Physician whom patient management has been discussed with. Diagnostic Impression: Primary Impression: back pain Additional Impression: Sciatica of right side ER Course 56-year-old female presents to the emergency department complaining of 8/10 in severity right-sided low back pain that radiates down into the posterior right thigh x1 week. Patient states she has a history of sciatica and she recently had exacerbation after helping to move her mother. Patient states that she was evaluated and discharged with Flexeril which she reports has not relieved any of her symptoms. Patient denies fevers, chills, recent spinal procedure, history of cancer, trauma or fall. Denies frequency, hematuria, urgency or abdominal pain. Denies numbness tingling or loss of sensation or gross motor movements of the extremities, incontinence of bowel or bladder. Denies CP, Palpitations, LOC, AMS, dizziness, Changes in Vision, Sensation, paresthesias, or a sudden severe headache. Ddx considered but are not limited to Fracture, dislocation, contusion, epidural abscess, Sprain/Strain/Spasm Vital signs: are WNL, pt. is afebrile H&PE are most consistent with sciatica - Pt. unable to tolerate straight leg raise. ORDERS: X-ray not required at this time, no spinous process tenderness, no evidence to suggest infection or acute emergent condition at this time. pt. is NVI. ED INTERVENTIONS: - IM Toradol 20mg. -d/w pt. conservative treatment, and to follow up with a primary care provider. pt given a list of primary care clinics for follow up. d/w pt. to return to the ED with worsening or new symptoms. DISCHARGE: At this time pt. is stable for d/c to home. Will provide printed patient care instructions, and any necessary prescriptions. Care plan and follow up instructions have been discussed with the patient prior to discharge. Last Vital Signs Date Time Temp Pulse Resp B/P (MAP) Pulse Ox O2 Delivery O2 Flow Rate FiO2 06/30/17 16:31 97.5 86 20 156/94 99 Room Air Disposition: HOME, SELF-CARE Condition: Stable Scripts Ibuprofen* (MOTRIN*) 600 Mg Tablet 600 MG ORAL THREE TIMES A DAY, #20 TAB 0 Refills Prov: Adrienne Galan 06/30/17 Methocarbamol* (ROBAXIN-750*) 750 Mg Tablet 750 MG PO TID, #40 TAB 0 Refills Prov: Adrienne Galan 06/30/17 Patient Instructions: Sciatica Additional Instructions: Take medications as directed. Follow up with a Primary Care Provider in 3-5 days, even if your symptoms have resolved. --Please review list of primary care clinics, if you do not already have a primary care provider Return sooner to ED if new symptoms occur, or current symptoms become worse. Do not drink alcohol, drive, or operate heavy machinery while taking Robaxin as this may cause drowsiness. - Please note that this Emergency Department Report was dictated using [employer] blanket technology software, occasionally this can lead to erroneous entry secondary to interpretation by the dictation equipment. Adrienne Galan Jun 30, 2017 17:05
[2017-06-30] MEDS ORDERED: IBUPROFEN600 MG ORAL (17:06)
[2017-06-30] MEDS ORDERED: ROBAXIN-750750 MG PO (17:06)
[2017-06-30 17:21] VITALS: BP 156/94
== END 2017-06-30 18:03 | disposition home or self-care (01) ==
LOC: EMR 16:57
DX: M54.41 Lumbago with sciatica, right side (principal); I10 Essential (primary) hypertension; J44.9 Chronic obstructive pulmonary disease, unspecified; Z90.710 Acquired absence of both cervix and uterus
CPT/HCPCS: 96372; 99284

== ENCOUNTER 2017-10-12 11:07 | Emergency (ER) | payer OTHER ==
[~2017-10-12] VITALS: Ht 170.2 cm; Wt 86.2 kg
[~2017-10-12 11:07] MED LIST changes: +ROBAXIN-750750 MG PO
[2017-10-12] MEDS ORDERED: Ketorolac 30mg Inj IM ONE (11:30)
--- NOTE | 2017-10-12 11:30 | Emergency Room Report ---
History of Present Illness General Chief Complaint: Pain Source: Patient Present Illness HPI 56-year-old female, presenting with left rib pain. Patient states he slipped and fell, now complaining of left-sided rib pain, worse with taking a deep breath or worse with twisting motion. No head trauma no LOC. Blood thinners Allergies: Coded Allergies: No Known Allergies (Unverified , 07/23/13) Patient History Past Medical History: see triage record Past Surgical History: none Pertinent Family History: none Last Menstrual Period: 1995 Reviewed Nursing Documentation: PMH: Agreed, PSxH: Agreed Nursing Documentation-PMH Past Medical History: No History, Except For Hx Hypertension: Yes Hx Pacemaker: No Hx Asthma: No Hx COPD: Yes Hx Diabetes: No Hx Cancer: No Hx Gastrointestinal Problems: Yes - HYSTERECTOMY IN 1995. Hx Dialysis: No Hx Neurological Problems: No Hx Cerebrovascular Accident: No Hx Seizures: No Review of Systems All Other Systems: negative except mentioned in HPI Physical Exam Vital Signs Date Time Temp Pulse Resp B/P (MAP) Pulse Ox O2 Delivery O2 Flow Rate FiO2 10/12/17 11:13 98.0 82 16 147/92 98 Room Air 98.1 Sp02 EP Interpretation: reviewed, normal General Appearance: alert, GCS 15, non-toxic, mild distress Head: normocephalic, atraumatic Eyes: bilateral eye normal inspection, bilateral eye PERRL, bilateral eye EOMI ENT: normal ENT inspection, normal pharynx, normal voice, moist mucus membranes Neck: normal inspection, full range of motion, supple Respiratory: normal inspection, lungs clear, normal breath sounds, no respiratory distress, no retraction, no wheezing, speaking full sentences, chest symmetrical Cardiovascular #1: other - L sided rib tenderness. Cardiovascular #2: 2+ radial (R), 2+ radial (L) Gastrointestinal: normal inspection, non tender, soft, non-distended, no guarding Musculoskeletal: back normal, normal range of motion, other - L sided 6-7th rib tenderness Neurologic: normal inspection, alert, oriented x3, responsive, motor strength/ tone normal, sensory intact, normal gait, speech normal Psychiatric: normal inspection, judgement/insight normal, memory normal Skin: normal inspection, normal color, no rash, warm/dry, well hydrated, normal turgor Medical Decision Making Diagnostic Impression: Primary Impression: Rib pain on left side ER Course 56-year-old F, presenting with left-sided rib pain for the last 2 weeks after she fell DDX: Contusion versus fracture Plan: Pain control, rib x-ray ER course: Patient has remained stable during ED stay. toradol given. feels better In pain, but speaking in complete sentences, no shortness of breath XR neg for fx Disposition: Patient is to be discharged to home with lidocaine patches Patient is instructed to follow up with their primary care doctor within 5 days. Please note that this Emergency Department Report was dictated using [employer] Systemsweigh box tender technology software, occasionally this can lead to erroneous entry secondary to interpretation by the dictation equipment L Rib and Chest X-ray CXR: Ordered: Yes 4 view Indication: Chest pain EP interpretation: Yes Interpretation: No FX, No consolidation, no effusion, no PTX, no acute cardiopulmonary disease Impression: No acute disease Electronically signed by Sylvester Coughlin MD Last Vital Signs Date Time Temp Pulse Resp B/P (MAP) Pulse Ox O2 Delivery O2 Flow Rate FiO2 10/12/17 11:13 98.0 82 16 147/92 98 Room Air 98.1 Disposition: HOME, SELF-CARE Condition: Improved Scripts Lidocaine (Lidocaine) 1 Each Adh..patch 700 MG TP EVERY 12 HOURS, #30 PATCH Prov: Sylvester Coughlin M.D. 10/12/17 Sylvester Coughlin M.D. Oct 12, 2017 11:30
[2017-10-12] MEDS ORDERED: LIDOCAINE700 M1 TP (12:21)
[2017-10-12 12:30] VITALS: BP 145/89
--- NOTE | 2017-10-12 13:10 | Diagnostic Imaging Report ---
. Indication: Left rib pain, chest pain. Patient fell trauma to the left-sided chest Comparison: None Findings: 4 view left rib series performed. There is no pneumothorax or effusion. No acute fracture seen. Bones are osteopenic. Extensive bullous changes in the upper lobes noted bilaterally. IMPRESSION: No acute fracture identified
== END 2017-10-12 12:35 | disposition home or self-care (01) ==
LOC: EMR 11:58
DX: R07.81 Pleurodynia (principal); I10 Essential (primary) hypertension; J44.9 Chronic obstructive pulmonary disease, unspecified; Z90.710 Acquired absence of both cervix and uterus
CPT/HCPCS: 71101; 96372; 99283; J1885

== ENCOUNTER 2018-06-22 17:41 | Emergency (ER) | payer OTHER ==
[~2018-06-22] VITALS: Ht 170.2 cm; Wt 81.6 kg
[~2018-06-22 17:41] MED LIST changes: -AMLODIPINE BESY10 MG; +AMLODIPINE BESY10 MG ORAL; -ASPIRIN81 M3; +ASPIRIN81 M3 ORAL; -ATENOLOL50 MG; +ATENOLOL50 MG ORAL; +LIDOCAINE700 M1 TP; -ZOLPIDEM TARTRA10 MG; +ZOLPIDEM TARTRA10 MG ORAL
[2018-06-22 18:05] VITALS: BP 137/88
[2018-06-22] MEDS ORDERED: MECLIZINE HCL25 MG ORAL (18:13)
[2018-06-22] MEDS ORDERED: Meclizine 25mg tab ORAL ONE (18:15)
--- NOTE | 2018-06-22 18:17 | Emergency Room Report ---
History of Present Illness General Chief Complaint: Dizziness Source: Patient Present Illness [facility] Patient's 57-year-old female brought in by self after increased dizziness. Patient reports having intermittent episodes since this morning. She reports having increased dizziness with head movements. She denies any vomiting. She reports having multiple prior medical problems. She denies taking any new medications. She denies any fever. She denies feeling lightheaded.She denies any severe headache or pain with movement of her head. She denies recent trauma. She denies any ringing in ears or hearing loss. Allergies: Coded Allergies: No Known Allergies (Unverified , 07/23/13) Patient History Past Medical History: see triage record Reviewed Nursing Documentation: PMH: Agreed; PSxH: Agreed Nursing Documentation-PMH Past Medical History: No History, Except For Hx Hypertension: Yes Hx Pacemaker: No Hx Asthma: No Hx COPD: Yes Hx Diabetes: No Hx Cancer: No Hx Gastrointestinal Problems: Yes - HYSTERECTOMY IN 1995. Hx Dialysis: No History Of Psychiatric Problem: Yes - Depression Hx Neurological Problems: No Hx Cerebrovascular Accident: No Hx Seizures: No Review of Systems All Other Systems: negative except mentioned in HPI Physical Exam Vital Signs Date Time Temp Pulse Resp B/P (MAP) Pulse Ox O2 Delivery O2 Flow Rate FiO2 06/22/18 17:50 98.2 75 14 137/88 97 Room Air General Appearance: well appearing, no apparent distress, alert, GCS 15 Head: normocephalic, atraumatic ENT: hearing grossly normal, normal voice Neck: full range of motion, supple Respiratory: no respiratory distress, speaking full sentences Cardiovascular #1: normal inspection, no edema Musculoskeletal: normal inspection, back normal, digits/nails normal, no calf tenderness Neurologic: normal inspection, alert, oriented x3, normal gait Psychiatric: normal inspection, judgement/insight normal, mood/affect normal Skin: no rash Medical Decision Making Diagnostic Impression: Primary Impression: Vertigo ER Course Patient presented for dizziness. Differential diagnosis included was not limited to CVA, vertebrobasilar insufficiency, myocardial infarction, benign positional vertigo, labyrinthitis, aspirin overdose among others. The patient has exam consistent with peripheral vertigo likely do to benign positional vertigo. Patient was given oral meclizine. the patient appears be stable for outpatient management. Last Vital Signs Date Time Temp Pulse Resp B/P (MAP) Pulse Ox O2 Delivery O2 Flow Rate FiO2 06/22/18 17:50 98.2 75 14 137/88 97 Room Air Status: improved Disposition: HOME, SELF-CARE Condition: Stable Scripts Albuterol Sulfate* (ALBUTEROL SULFATE MDI*) 8.5 Gm Hfa.aer.ad 2 PUFF INH Q4H PRN for cough/wheezing, #1 EA 0 Refills Prov: Robin Corbett MD 06/22/18 Meclizine Hcl* (MECLIZINE*) 25 Mg Tablet 25 MG ORAL THREE TIMES A DAY, #30 TAB Prov: Robin Corbett MD 06/22/18 Patient Instructions: Vertigo Robin Corbett MD Jun 22, 2018 18:17
[2018-06-22] MEDS ORDERED: ALBUTEROL SULF8.5 GM INH (18:30)
[2018-06-22] MEDS ORDERED: Albuterol/Ipratropium 3ml neb HHN ONE (18:30)
[2018-06-22 19:01] VITALS: BP 132/80
[2018-06-22 19:31] VITALS: BP 132/80
== END 2018-06-22 19:32 | disposition home or self-care (01) ==
LOC: EMR 18:38
DX: R42 Dizziness and giddiness (principal); I10 Essential (primary) hypertension; J44.9 Chronic obstructive pulmonary disease, unspecified; F32.9 Major depressive disorder, single episode, unspecified; Z90.710 Acquired absence of both cervix and uterus
CPT/HCPCS: 94640; 94664; 99284; J7620

== ENCOUNTER 2018-11-30 07:26 | Emergency (ER) | payer OTHER ==
[~2018-11-30] VITALS: Ht 170.2 cm; Wt 89.4 kg
[~2018-11-30 07:26] MED LIST changes: +MECLIZINE HCL25 MG ORAL
[2018-11-30] MEDS ORDERED: TRIUMEQ 600-501 EACH PO (07:38)
[2018-11-30] MEDS ORDERED: Isovue-300 100ml vial INJ PRN (07:45)
--- NOTE | 2018-11-30 07:46 | NUR ---
ED Nurse Note: Pt came in from home due to RLQ abdominal pain 8/10 juan manuel with nausea and diarrhea x 2 days. Last bowel movement was this morning with soft stool. Pt stated having hx of Gastric Ulcer. AOx4, VS juan manuel. Will cont to monitor.
--- NOTE | 2018-11-30 07:52 | Emergency Room Report ---
History of Present Illness General Chief Complaint: Abdominal Pain Source: Patient Present Illness HPI The patient complains of right lower abdominal pain for the past few days. She states she also has pain in her right buttock. She states that if she is sitting down she will get stuck in that position and it is too painful for her to stand up. She denies recent illness. She denies fever or chills. She denies nausea or vomiting. She denies chest pain or shortness of breath or. She denies weakness. She denies tingling or numbness. She denies dysuria or hematuria. She has no other complaints. Allergies: Coded Allergies: No Known Allergies (Unverified , 07/23/13) Patient History Past Medical History: HTN, COPD, HIV Past Surgical History: hysterectomy Social History: Denies: smoking, alcohol use, drug use Last Menstrual Period: menopause Now: No : 1 Para: 0 Reviewed Nursing Documentation: PMH: Agreed; PSxH: Agreed Nursing Documentation-PMH Hx Cardiac Problems: No - HIV+ Hx Hypertension: Yes Hx Pacemaker: No Hx Asthma: No Hx COPD: Yes Hx Diabetes: No Hx Cancer: No Hx Gastrointestinal Problems: Yes - HYSTERECTOMY IN 1995. Hx Dialysis: No Hx Neurological Problems: No Hx Cerebrovascular Accident: No Hx Seizures: No Review of Systems All Other Systems: negative except mentioned in HPI Physical Exam Vital Signs Date Time Temp Pulse Resp B/P (MAP) Pulse Ox O2 Delivery O2 Flow Rate FiO2 11/30/18 07:32 98.2 85 16 107/70 92 Room Air Sp02 EP Interpretation: reviewed, normal General Appearance: no apparent distress, alert, GCS 15, non-toxic Head: normocephalic, atraumatic Eyes: bilateral eye normal inspection, bilateral eye PERRL ENT: hearing grossly normal, normal pharynx, no angioedema, normal voice Neck: full range of motion, supple/symm/no masses Respiratory: chest non-tender, lungs clear, normal breath sounds, no respiratory distress, no retraction, no accessory muscle use, speaking full sentences Cardiovascular #1: regular rate, rhythm, no edema Gastrointestinal: normal bowel sounds, soft, non-distended, no guarding, tenderness - Exquisitely TTP in the RLQ w/ referred pain to the RLQ Rectal: deferred Genitourinary: normal inspection, no CVA tenderness Musculoskeletal: back normal, gait/station normal, normal range of motion, tender - TTP in the R. superior buttock and piriformis m. Neurologic: alert, oriented x3, responsive, motor strength/tone normal, sensory intact, speech normal Psychiatric: judgement/insight normal, memory normal, mood/affect normal, no suicidal/homicidal ideation Skin: normal color, no rash, warm/dry, well hydrated Medical Decision Making Diagnostic Impression: Primary Impression: Diverticulitis ER Course This patient has findings on CT consistent with acute descending colon diverticulitis. This is in the location of the patient's tenderness. She also has slightly elevated white blood cell count at 11.8. Overall, the patient is nontoxic and well-appearing. She is tolerating oral intake. I will treat the patient with a course of Augmentin for diverticulitis. Patient was also given abdominal pain precautions, close return precautions and follow-up instructions. Laboratory Tests Test 11/30/18 07:39 11/30/18 07:55 Urine Color Pale yellow Urine Appearance Clear Urine pH 6 (4.5-8.0) Urine Specific [place] 1.015 (1.005-1.035) Urine Protein Negative (NEGATIVE) Urine Glucose (UA) Negative (NEGATIVE) Urine Ketones Negative (NEGATIVE) Urine Blood Negative (NEGATIVE) Urine Nitrite Negative (NEGATIVE) Urine Bilirubin Negative (NEGATIVE) Urine Urobilinogen Normal MG/DL (0.0-1.0) Urine Leukocyte Esterase 2+ (NEGATIVE) H Urine RBC 2-4 /HPF (0 - 2) H Urine WBC 5-10 /HPF (0 - 2) H Urine Squamous Epithelial Cells Occasional /LPF Urine Bacteria Few /HPF (NONE) White Blood Count 11.8 K/UL (4.8-10.8) H Red Blood Count 4.91 M/UL (4.20-5.40) Hemoglobin 15.3 G/DL (12.0-16.0) Hematocrit 47.5 % (37.0-47.0) H Mean Corpuscular Volume 97 FL (80-99) Mean Corpuscular Hemoglobin 31.2 PG (27.0-31.0) H Mean Corpuscular Hemoglobin Concent 32.2 G/DL (32.0-36.0) Red Cell Distribution Width 12.6 % (11.6-14.8) Platelet Count 320 K/UL (150-450) Mean Platelet Volume 7.6 FL (6.5-10.1) Neutrophils (%) (Auto) 66.1 % (45.0-75.0) Lymphocytes (%) (Auto) 25.7 % (20.0-45.0) Monocytes (%) (Auto) 5.6 % (1.0-10.0) Eosinophils (%) (Auto) 2.0 % (0.0-3.0) Basophils (%) (Auto) 0.6 % (0.0-2.0) Sodium Level 142 MMOL/L (136-145) Potassium Level 3.6 MMOL/L (3.5-5.1) Chloride Level 104 MMOL/L (98-107) Carbon Dioxide Level 27 MMOL/L (21-32) Anion Gap 11 mmol/L (5-15) Blood Urea Nitrogen 17 mg/dL (7-18) Creatinine 1.1 MG/DL (0.55-1.30) Estimate Glomerular Filtration Rate > 60 mL/min (>60) Glucose Level 129 MG/DL (74-106) H Calcium Level 8.9 MG/DL (8.5-10.1) Total Bilirubin 0.3 MG/DL (0.2-1.0) Aspartate Amino Transferase (AST) 16 U/L (15-37) Alanine Aminotransferase (ALT) 26 U/L (12-78) Alkaline Phosphatase 89 U/L (46-116) Total Protein 7.6 G/DL (6.4-8.2) Albumin 3.7 G/DL (3.4-5.0) Globulin 3.9 g/dL Albumin/Globulin Ratio 0.9 (1.0-2.7) L CT/MRI/US Diagnostic Results CT/MRI/US Diagnostic Results : Imaging Test Ordered: CT abd/pelvis Impression Impression: Inflammation adjacent to the ascending colon. There are some diverticula in this area so this probable represents ascending colon diverticulitis. Incidental findings as noted, including accessory splenule, evidence of prior hysterectomy, dependent atelectatic changes, minimal degenerative spondylosis changes The CT scanner at [facility] is accredited by the [employer] and the scans are performed using protocols designed to limit radiation exposure to as low as reasonably achievable to attain images of sufficient resolution adequate for diagnostic evaluation. Last Vital Signs Date Time Temp Pulse Resp B/P (MAP) Pulse Ox O2 Delivery O2 Flow Rate FiO2 11/30/18 07:32 98.2 85 16 107/70 92 Room Air Status: improved Disposition: HOME, SELF-CARE Condition: Improved Linda Gonsalez DO Nov 30, 2018 07:52
[2018-11-30] MEDS ORDERED: Ketorolac 60mg Inj IM ONE (08:00)
--- NOTE | 2018-11-30 08:02 | NUR ---
ED Nurse Note: Blood and urine collected and sent to lab.
[2018-11-30 08:04] VITALS: BP 127/69
[2018-11-30 08:12] LABS: BASOPHILS % (AUTO) 0.6 % (0.0-2.0); HEMATOCRIT 47.5 % (37.0-47.0); HEMOGLOBIN 15.3 G/DL (12.0-16.0); LYMPHOCYTES % (AUTO) 25.7 % (20.0-45.0); MEAN CORPUSCULAR VOLUME 97 FL (80-99); MONOCYTES % (AUTO) 5.6 % (1.0-10.0); NEUTROPHILS % (AUTO) 66.1 % (45.0-75.0); PLATELET COUNT 320 K/UL (150-450); RED BLOOD COUNT 4.91 M/UL (4.20-5.40); RED CELL DISTRIBUTION WIDTH 12.6 % (11.6-14.8); WHITE BLOOD COUNT 11.8 K/UL (4.8-10.8)
[2018-11-30 08:22] LABS: ANION GAP 11 mmol/L (5-15); BLOOD UREA NITROGEN 17 mg/dL (7-18); CALCIUM 8.9 MG/DL (8.5-10.1); CARBON DIOXIDE 27 MMOL/L (21-32); CHLORIDE 104 MMOL/L (98-107); CREATININE 1.1 MG/DL (0.55-1.30); POTASSIUM 3.6 MMOL/L (3.5-5.1); SODIUM 142 MMOL/L (136-145)
[2018-11-30 08:23] LABS: APPEARANCE,URINE CLEAR; BILIRUBIN, URINE NEGATIVE (NEGATIVE); COLOR,URINE PALE YELLOW; GLUCOSE, URINE (UA) NEGATIVE (NEGATIVE); KETONES,URINE NEGATIVE (NEGATIVE); LEUKOCYTE ESTERASE ,URINE 2+ (NEGATIVE); NITRITE,URINE NEGATIVE (NEGATIVE); PH,URINE 6 (4.5-8.0); PROTEIN,URINE NEGATIVE (NEGATIVE); UROBILINOGEN,URINE NORMAL MG/DL (0.0-1.0)
[2018-11-30 08:27] LABS: ALANINE AMINOTRANSFERASE 26 U/L (12-78); ALBUMIN 3.7 G/DL (3.4-5.0); ALBUMIN/GLOBULIN RATIO 0.9 (1.0-2.7); ALKALINE PHOSPHATASE 89 U/L (46-116); ASPARTATE AMINO TRANSFERASE 16 U/L (15-37); BILIRUBIN,TOTAL 0.3 MG/DL (0.2-1.0)
--- NOTE | 2018-11-30 09:10 | NUR ---
ED Nurse Note: Pt sleeping on bed comfortably, no sign of acute distress.
--- NOTE | 2018-11-30 09:24 | Diagnostic Imaging Report ---
Clinical Indication: Right lower abdominal pain and pain in her right buttock for the past few days Technique: No oral contrast utilized, per emergency room physician request IV administration nonionic contrast. Venous phase spiral acquisition obtained through the abdomen and pelvis. Multiplanar reconstructions were generated. Total dose length product 969.8 mGycm. CTDIvol(s) 18.4 mGy. Dose reduction achieved using automated exposure control Comparison: 11/19/[address] Findings: Lack of enteric contrast limits assessment of the GI tract. There is colonic diverticulosis. This is predominantly in the proximal colon. There is infiltration of the fat adjacent to the ascending colon anteriorly and laterally. No extraluminal gas or fluid collection demonstrated. The appendix is normal. No small bowel distention. No free or loculated intraperitoneal gas or fluid is evident. The distal esophagus, stomach, duodenum are unremarkable. The liver, gallbladder, bile ducts, pancreas, spleen, adrenals, kidneys are all unremarkable. Previously reported punctate renal calculi probably obscured by the contrast on the current exam. Incidental note is made of small accessory splenules which also evident previously. No pelvic mass or adenopathy. The uterus is absent, presumably postsurgically. The bladder is unremarkable. The included lung bases demonstrate posterior dependent atelectatic changes as well as some scarring or atelectasis in the lingula. The bones are unremarkable except for minimal degenerative spondylosis changes. Impression: Inflammation adjacent to the ascending colon. There are some diverticula in this area so this probable represents ascending colon diverticulitis. Incidental findings as noted, including accessory splenule, evidence of prior hysterectomy, dependent atelectatic changes, minimal degenerative spondylosis changes The CT scanner at [facility] is accredited by the [employer] and the scans are performed using protocols designed to limit radiation exposure to as low as reasonably achievable to attain images of sufficient resolution adequate for diagnostic evaluation.
[2018-11-30 09:46] VITALS: BP 113/58
[2018-11-30] MEDS ORDERED: TRAMADOL HCL50 MG ORAL (10:09)
[2018-11-30] MEDS ORDERED: AUGMENTIN 875-1 EAC1 ORAL (10:09)
[2018-11-30 10:20] VITALS: BP 113/58
--- NOTE | 2018-11-30 10:20 | NUR ---
ER DISCHARGE NOTE: Patient is cleared to be discharged per ERMD, pt is aox4, on room air, with stable vital signs. pt was given dc and prescription instructions, pt was able to verbalize understanding, pt id band and iv site removed without complications. pt is able to ambulate with steady gait. pt took all belongings.
== END 2018-11-30 10:20 | disposition home or self-care (01) ==
LOC: EMR 07:45
DX: K57.92 Diverticulitis of intestine, part unspecified, without perforation or abscess without bleeding (principal); K62.89 Other specified diseases of anus and rectum; I10 Essential (primary) hypertension; J44.9 Chronic obstructive pulmonary disease, unspecified; B20 Human immunodeficiency virus [HIV] disease; Z90.710 Acquired absence of both cervix and uterus; M47.9 Spondylosis, unspecified
CPT/HCPCS: 36415; 74177; 80053; 81003; 85025; 96360; 96372; 99284; Q9967